=== PATIENT | male | born 1965 ===

== ENCOUNTER 2017-06-15 09:54 | Emergency (ER) | payer BC ==
[~2017-06-15] VITALS: Ht 193 cm; Wt 133.8 kg
[2017-06-15] MEDS ORDERED: LEVO-T125 MCG (10:06)
[2017-06-15] MEDS ORDERED: PROMETHAZINE W118 ML PO ×2 (15:29→15:35)
== END 2017-06-15 16:13 | disposition home or self-care (01) ==
LOC: ER 09:54
DX: B34.9 Viral infection, unspecified (principal); J40 Bronchitis, not specified as acute or chronic; J11.1 Influenza due to unidentified influenza virus with other respiratory manifestations